=== PATIENT | male | born 1995 | race Caucasian/White ===

== ENCOUNTER 2016-11-12 16:31 | Emergency (ER) | payer SELFPAY ==
[2016-11-12 17:03] VITALS: BP 106/67
[2016-11-12 19:18] LABS: Bilirubin,Urine NEG (Negative); Blood,Urine NEG (Negative); Ketones,Urine NEG (Negative); Leukocyte Esterase,Urine NEG (Negative); Mucus,Urine FEW /HPF; Nitrite,Urine NEG (Negative); Protein,Urine <15 mg/dL mg/dL (Negative); RBC,Urine < 1.0 /HPF (0.0-6.0); Urobilinogen,Urine < 2.0 mg/dL (<2.0); WBC,Urine < 1.0 /HPF (0.0-6.0)
== END 2016-11-12 20:15 | disposition left against medical advice (07) ==
LOC: ED 16:31
DX: Z53.21 Procedure and treatment not carried out due to patient leaving prior to being seen by health care provider (principal)
CPT/HCPCS: 81001; 87591

== ENCOUNTER 2018-12-06 15:24 | Emergency (ER) | payer SELFPAY ==
--- NOTE | 2018-12-06 15:36 | Emergency Department Report ---
Blank Doc - Documentation Documentation: 23-year-old male that presents with dysuria and penile discharge. Stated star sofia to have some lower abdominal pains. This initial assessment/diagnostic orders/clinical plan/treatment(s) is/are subject to change based on patient's health status, clinical progression and re-assessment by fellow clinical providers in the ED. Further treatment and workup at subsequent clinical providers discretion. Patient/guardians urged not to elope from the ED as their condition may be serious if not clinically assessed and managed. Initial orders include: 1- Patient sent to [facility] for further evaluation and treatment 2- UA/GC
[2018-12-06 15:37] VITALS: BP 124/81
[2018-12-06 16:15] LABS: Bilirubin,Urine NEG (Negative); Blood,Urine NEG (Negative); Color,Urine Yellow (Yellow); Mucus,Urine FEW /HPF; Protein,Urine <15 mg/dL mg/dL (Negative)
[2018-12-06] MEDS ORDERED: ZITHROMAX PO ONE (16:27)
[2018-12-06] MEDS ORDERED: ROCEPHIN IM ONE (16:27)
[2018-12-06] MEDS ORDERED: XYLOCAINE 1% MPF 5 mL INFILTRATI ONE (16:27)
--- NOTE | 2018-12-06 17:09 | Emergency Department Report ---
HPI - General Chief Complaint: Urogenital-Male Time Seen by Provider: 12/06/18 15:33 - HPI HPI: 23-year-old -[place] male presents to the emergency department with a complaint of a few days of some sharp pains to the tip of his penis. Sometimes it occurs when he is urinating and sometimes it will occur while he is just at rest. He says that there could be potentially a small amount of discharge that he noticed last night. He denies any genital lesions. No testicular pain. He denies any past medical history including any previous history of STDs. No fever, abdominal or pelvic pain, back pain, nausea or vomiting. He has not taken anything for her symptoms prior to arrival. ED Past Medical Hx - Past Medical History Previous Medical History?: No - Surgical History Past Surgical History?: No - Social History Smoking Status: Current Every Day Smoker Substance Use Type: Alcohol, Marijuana - Medications Home Medications: Home Medications Medication Instructions Recorded Confirmed Last Taken Type HYDROcodone/ACETAMINOPHEN [Lortab 2 each PO Q6H #20 tablet 09/13/13 Unknown Rx 5-325 mg Tablet] Sulfamethoxazole/Trimethoprim 1 each PO BID #14 tablet 09/13/13 Unknown Rx [Bactrim Ds] cephALEXin [Keflex] 500 mg PO Q6HR 10 Days #40 capsule 11/09/18 Unknown Rx traMADol [Ultram] 50 mg PO Q6HR PRN #12 tablet 11/09/18 Unknown Rx Sulfamethoxazole/Trimethoprim 1 each PO BID #14 tablet 12/06/18 Unknown Rx [Bactrim DS TAB] ED Review of Systems ROS: Stated complaint: GENITAL PAIN Other details as noted in HPI Comment: All other systems reviewed and negative Constitutional: denies: chills, fever Gastrointestinal: denies: abdominal pain, nausea, vomiting Genitourinary: dysuria, discharge. denies: testicular pain Musculoskeletal: denies: back pain Skin: denies: rash, lesions Physical Exam - Physical Exam Vital Signs: Vital Signs 12/06/18 15:28 Temperature 98.5 F Pulse Rate 72 Respiratory 17 Rate Blood Pressure 124/81 O2 Sat by Pulse 99 Oximetry Physical Exam: GENERAL: The patient is well-developed well-nourished. HENT: Normocephalic. Atraumatic. Patient has moist mucous membranes. EYES: Extraocular motions are intact NECK: Supple. Trachea is midline. ABDOMEN: There is no abdominal distention. SKIN: Skin is warm and dry. NEURO: The patient is awake, alert, and oriented. The patient is cooperative. Normal speech. MUSCULOSKELETAL: There is no tenderness or deformity. There is no limitation range of motion. There is no evidence of acute injury. : No penile discharge seen. No genital lesions. ED Course Vital Signs 12/06/18 15:28 Temperature 98.5 F Pulse Rate 72 Respiratory 17 Rate Blood Pressure 124/81 O2 Sat by Pulse 99 Oximetry ED Medical Decision Making - Medical Decision Making This patient presents with a few days of some burning with urination and some pain to the tip of the penis at the urethra with some questionable mild discharge. Urinalysis shows a moderate urinary tract infection. On examination I do not see any discharge, genital lesions. Patient was treated empirically with Rocephin and azithromycin to treat gonorrhea and chlamydia. Urine culture and GC culture were sent as well. He was given a prescription for antibiotics to treat the urinary tract infection and a referral for primary care. He will return to the ER with any worsening of his symptoms or any acute distress. - Differential Diagnosis UTI, urethritis, balanitis Critical Care Time: No Critical care attestation.: If time is entered above; I have spent that time in minutes in the direct care of this critically ill patient, excluding procedure time. ED Disposition Clinical Impression: Urethritis UTI (urinary tract infection) Qualifiers: Urinary tract infection type: acute cystitis Hematuria presence: without hematuria Qualified Code(s): N30.00 - Acute cystitis without hematuria Disposition: TO HOME OR SELFCARE Is pt being admited?: No Condition: Stable Instructions: Nonspecific Urethritis in Men (ED), Urinary Tract Infection in Men (ED) Additional Instructions: Please follow-up with a primary care physician in the next few days. Return to the emergency Department with any worsening of your symptoms or any acute distress. Take the antibiotics as prescribed. Please avoid any sexual contact for at least one week after getting your treatment here today. Prescriptions: Sulfamethoxazole/Trimethoprim [Bactrim DS TAB] 1 each PO BID #14 tablet Referrals: DEL MATHIS MD [Staff Physician] - 2-3 Days [facility] [Outside] - 2-3 Days Forms: STI Treatment and Prevention Time of Disposition: 17:09
== END 2018-12-06 17:25 | disposition home or self-care (01) ==
LOC: ED 15:24
DX: N34.2 Other urethritis (principal); N39.0 Urinary tract infection, site not specified; F17.200 Nicotine dependence, unspecified, uncomplicated; F12.10 Cannabis abuse, uncomplicated; Z79.899 Other long term (current) drug therapy
CPT/HCPCS: 81001; 87086; 87591; 96372; 99283; J0696